=== PATIENT | female | born 1940 | race Native Hawaiian/Other Pacific Islander ===

== ENCOUNTER 2020-06-21 22:02 | Emergency (ER) | payer OTHER ==
[~2020-06-21] VITALS: Ht 162.6 cm; Wt 85.3 kg
[2020-06-21 22:03] VITALS: BP 165/79; TEMP 98.5
[2020-06-21 22:39] LABS: PLATELET COUNT 294 K/uL (152-353)
[2020-06-21 22:46] LABS: POTASSIUM 3.4 mmol/L (3.6-5.2)
[2020-06-22] MEDS ORDERED: ACETAMINOPHEN PO (00:29)
[2020-06-22] MEDS ORDERED: DONEPEZIL HYDRO10 MG PO (00:30)
[2020-06-22] MEDS ORDERED: ASPIRIN EC PO (00:32)
[2020-06-22] MEDS ORDERED: LIPITOR40 MG PO (00:34)
[2020-06-22] MEDS ORDERED: CLARITIN10 M1 PO (00:35)
[2020-06-22] MEDS ORDERED: CARV6.25 PO (00:36)
[2020-06-22] MEDS ORDERED: DEPAKOTE DR PO (00:37)
[2020-06-22] MEDS ORDERED: DRIZALMA SPRINK30 MG PO (00:39)
[2020-06-22] MEDS ORDERED: MELATONIN5 M2 PO (00:41)
[2020-06-22] MEDS ORDERED: MULT VITAMI1 PO (00:42)
[2020-06-22] MEDS ORDERED: NAMENDA10 MG PO (00:43)
[2020-06-22] MEDS ORDERED: SEROQUEL25 MG PO ×2 (00:44→00:46)
[2020-06-22] MEDS ORDERED: TRAMADOL HYDROC50 MG PO (00:48)
[2020-06-22] MEDS ORDERED: TYLENOL ARTHRITIS PO (00:50)
[2020-06-22] MEDS ORDERED: TRULICITY0.75 MG/0. SC ×2 (00:53→00:57)
[2020-06-22] MEDS ORDERED: HUMALOG KW100 UNIT/M SC (01:03)
[2020-06-22] MEDS ORDERED: HUMULIN 70/30 K1 INJ SC ×2 (01:06→01:07)
[2020-06-22] MEDS ORDERED: LIDOPATCH TOP (01:12)
== END 2020-06-21 23:09 | disposition still patient (30) ==
LOC: ED 22:02
PROVIDERS: Hospitalist
DX: F03.91 Unspecified dementia, unspecified severity, with behavioral disturbance (principal); F22 Delusional disorders; Z11.52 Encounter for screening for COVID-19; Z04.6 Encounter for general psychiatric examination, requested by authority
CPT/HCPCS: 36415; 80053; 81000; 85027; 87635; 93005; 99283; U0003